=== PATIENT | male | born 1950 | race Caucasian/White ===

== ENCOUNTER 2018-07-10 11:59 | Inpatient (IN) ==
[2018-07-10] MEDS ORDERED: traMADol 50 MG TABLET PO PRN ×2 (16:45→18:45)
[2018-07-10] MEDS: Ipratropium/Albuterol Neb 3 ML IH SCH ×2 (18:05→23:11)
[2018-07-10] MEDS: traMADol 50 MG TABLET PO PRN (19:46)
[2018-07-10] MEDS: Apixaban 5 MG TABLET PO SCH (19:46)
[2018-07-10] MEDS: Gabapentin 300 MG CAPSULE PO SCH (19:46)
[2018-07-10] MEDS: Divalproex (24 HR) 500 MG TABLET PO SCH (19:46)
[2018-07-10] MEDS: Potassium Chloride Elixir 20 MEQ/15 ML UDC PO SCH (19:47)
[2018-07-10] MEDS ORDERED: NON-FORMULARY MEDICATION 1 EACH EACH (Calcium Carbonate/Vitamin D3 [Calcium 500+D Tablet C PO SCH (21:00)
[2018-07-11] MEDS: traMADol 50 MG TABLET PO PRN ×4 (03:49→23:05)
[2018-07-11] MEDS: Ipratropium/Albuterol Neb 3 ML IH SCH ×3 (04:45→16:00)
[2018-07-11] MEDS: Apixaban 5 MG TABLET PO SCH ×2 (04:58→16:59)
[2018-07-11] MEDS ORDERED: Tiotropium 18 MCG inhalation IH SCH (09:00)
[2018-07-11] MEDS ORDERED: amLODIPine 5 MG TABLET PO SCH (09:00)
[2018-07-11] MEDS ORDERED: Furosemide 40 MG TABLET PO SCH (09:00)
[2018-07-11] MEDS: levoFLOXacin 250 MG TABLET PO SCH (09:01)
[2018-07-11] MEDS: Budesonide/Formoterol 160/4.5 1 PUFF INH IH SCH (09:01)
[2018-07-11] MEDS: predniSONE 20 MG TABLET PO SCH (09:02)
[2018-07-11] MEDS: Gabapentin 300 MG CAPSULE PO SCH ×2 (09:02→15:22)
[2018-07-11] MEDS: Potassium Chloride Elixir 20 MEQ/15 ML UDC PO SCH ×2 (09:03→21:42)
[2018-07-11] MEDS: Cholecalciferol (D-3) 1,000 UNIT TABLET PO SCH (09:03)
[2018-07-11] MEDS: Finasteride 5 MG TABLET PO SCH (09:04)
--- NOTE | 2018-07-11 16:37 | Internal Med History&Physical ---
Date of Encounter: 07/11/18 Time of Encounter: 16:00 Assessment and Plan (1) Hospital-acquired pneumonia Current visit: No Status: Acute Continue Levaquin through July 20. Add lactobacillus. (2) Anemia Current visit: Yes Status: Acute Present on all labs since July 2017. Anemia testing will be done in a.m. Qualifiers: Anemia type: unspecified type Qualified Code(s): D64.9 - Anemia, unspecified (3) DM type 2 (diabetes mellitus, type 2) Current visit: Yes Status: Chronic He was unaware of this. Hemoglobin A1c was 7.1% on 06/27/2018. Monitor blood sugars as needed. Qualifiers: Diabetes mellitus terminal worker insulin use: without terminal worker use Diabetes mellitus complication status: without complication Qualified Code(s): E11.9 - Type 2 diabetes mellitus without complications (4) Weight gain Current visit: Yes Status: Acute TSH will be checked in a.m. Suspect weight gain due in part to fluid retention. Bumex will be started instead of Lasix and further workup done as needed. (5) DVT (deep venous thrombosis) Current visit: No Status: Chronic Continue Eliquis Qualifiers: DVT location: lower extremity Affected thrombotic vein of extremity: unspecified lower extremity proximal vein Chronicity: acute Laterality: right Qualified Code(s): I82.4Y1 - Acute embolism and thrombosis of unspecified deep veins of right proximal lower extremity (6) Hypertension Current visit: No Status: Chronic Discontinue amlodipine to lessen edema. Coreg will be started. Qualifiers: Hypertension type: essential hypertension Qualified Code(s): I10 - Essential (primary) hypertension Internal Medicine - H&P: HPI Chief complaint: Pneumonia Admitted From: Hospital to Hospital Transfer Plans for Post Hospital Care: Home History of present illness: Mr. Stanton is a 68 year old male who was transferred to [facility] swing bed after a 07/03/2018-07/08/2018 stay at [facility] for treatment of hospital-acquired pneumonia. He reports it was the sixth hospitalization an approximate 4 months. Bronchoscopy and BAL were performed. AFB stain was negative. Legionella culture was pending at time of discharge. Respiratory culture showed growth of normal perez with yeast species seen on fungal culture. Respiratory history is significant for having smoked from age [age] never exceeding 1 pack per day. PFTs 04/10/2018 showed FVC 53% predicted, FEV1 44% predicted, FEV 1/FVC 62%, and MVV 44% predicted. There was no significant improvement in FVC or FEV1 postbronchodilator. He wears oxygen 07/01. He reports negative RAFAEL workup in 2018. Past Med Surg Social Fam HX - Past Medical History Medical history: arthritis, COPD, GERD, other Additional medical history: pericarditis Psychiatric history: anxiety - Past Surgical History Surgical History: cholecystectomy, knee replacement, orthopedic, other Additional surgical history: heart surgery( pericardial window). total right knee replacement. left hip surgery with noa from hip to knee - Social History Smoking Status: Former smoker Smokeless Tobacco Status: No Alcohol use: none Drug use: none - Family History Mother Living Status: Hx Family Cancer: Yes (breast) Father Living Status: Hx Family Cardiac Disorders: Yes Hx Family Cancer: Yes (colon) Internal Medicine - H&P: Meds Calcium Carbonate/Vitamin D3 [Calcium 500+D Tablet Chew] 1 tab PO BID 01/28/17 [History] Divalproex (24 HR) [Depakote ER (24 HR)] 500 mg PO HS 01/28/17 [History] Finasteride [Proscar] 5 mg PO DAILY 01/28/17 [History] Gabapentin [Neurontin] 600 mg PO TID 01/28/17 [History] Tramadol HCl [Ultram] 50 - 100 mg PO Q6HR PRN 01/28/17 [History] Esomeprazole Magnesium [Nexium] 20 mg PO DAILY 04/22/17 [History] Tizanidine HCl 4 mg PO TID PRN 04/11/18 [History] Albuterol Sulfate [Ventolin Hfa] 2 puff IH Q6H PRN 05/20/18 [History] Budesonide/Formoterol 160/4.5 [Symbicort 160/4.5] 2 puff IH DAILY 05/20/18 [History] Tiotropium [Spiriva] 1 puff IH DAILY 05/20/18 [History] Apixaban [Eliquis] 5 mg PO 0600,1800 06/17/18 [History] Quetiapine Fumarate [Seroquel] 400 mg PO HS 06/17/18 [History] Lisinopril [Zestril] 5 mg PO DAILY #30 tablet 01/14/19 [Rx] Amlodipine Besylate 10 mg PO DAILY 07/03/18 [History] Furosemide [Lasix] 40 mg PO QAM #30 tablet 07/08/18 [Rx] Ipratropium/Albuterol Neb [Duoneb] 3 ml IH QID #100 inhsol 07/08/18 [Rx] Potassium Chloride Elixir [Potassium Chloride] 10 meq PO BID #60 udc 07/08/18 [R x] levoFLOXacin [Levaquin] 750 mg PO DAILY 12 Days #12 tablet 07/08/18 [Rx] predniSONE [PredniSONE] 20 mg PO QAM #5 tablet 07/08/18 [Rx] Allergy/AdvReac Type Severity Reaction Status Date / Time metoprolol [From Toprol XL] Allergy Swelling Verified 07/03/18 09:20 of Lip/Tongue/Throat tamsulosin [From Flomax] Allergy Itching Verified 07/03/18 09:20 All Systems PM: A 10-system review of systems was performed and is negative for pertinent findings except as documented above in the HPI. Review of systems: Gen.: His weight has been stable at approximately 192 kg since March 2018. He reports a weight gain of ~70 pounds from 1 year ago. Cardiovascular: He has history of hypertension. He denies MA or pulmonary embolism. He states he had right leg DVT diagnosed a few weeks ago and is on Eliquis. Echocardiogram 06/27/2017 showed LVEF of 60-65%. The E/A ratio was 0.8. No significant valvular abnormalities were seen. Regadenoson EST 03/29/2017 showed no evidence of ischemia or infarct on EKG or perfusion imaging. He reports pericardial window procedure was performed approximately 2006. Respiratory: As per history of present illness GI: He states he drank significantly in early adulthood he was diagnosed with cirrhosis approximately 2004. He has had cholecystectomy. He denies other disorders of his liver or exocrine pancreas : He denies hematuria dysuria or kidney stones. He has BPH and is on Proscar. Neurologic: He denies large disposition strokes or seizures. Endocrine: He denies diabetes thyroid disease or hyperlipidemia Hematology/oncology: He was unaware he had anemia. He denies known internal malignancies or other blood disorders Psychiatric: He states he does not feel anxiety or depression. He has not been diagnosed with other mental health issues. [place] skeletal: He has DJD but denies gout or other bone joint or muscle disorders. - Constitutional Vitals: Temp Pulse Resp BP Pulse Ox 98.2 F 101 16 130/83 96 07/11/18 06:54 07/11/18 09:46 07/11/18 16:02 07/11/18 06:54 07/11/18 16:02 Exam: Gen.: He is well-developed overweight male who appears in minimal respiratory distress while at rest HEENT: Head is atraumatic and normocephalic. Eyes: EOMI. There is no scleral icterus. Mouth: Mucosa is moist. Neck: Supple and nontender. There is no thyromegaly or adenopathy noted. Heart: Regular without murmurs gallops or ectopics Lungs: No wheezes or crackles are heard. Abdomen: Has a large abdomen. It is nontender to palpation. No masses or guarding are noted. Extremities: He has 1-2+ edema of the dorsum the feet and lower legs bilaterally. Dorsalis pedis and posterior tibial pulses are not palpable. Neurologic: Mental status: He is talkative and a good historian. Cranial nerves: Smile is symmetric. Forehead wrinkles bilaterally. Tongue protrudes midline. EOMI. Motor: There is no pronator drift. Cerebellar: Finger to nose is intact bilaterally. Skin: Warm and dry
[2018-07-11] MEDS: Bumetanide 1 MG TABLET PO SCH (17:35)
[2018-07-11] MEDS: Isosorbide MONOnitrate (24 HR) 30 MG TAB.ER.24H PO SCH (17:36)
[2018-07-11] MEDS: Divalproex (24 HR) 500 MG TABLET PO SCH (21:41)
[2018-07-11] MEDS: Lactobacillus 1 EACH CAP.SPRINK PO SCH (21:42)
[2018-07-11] MEDS: tiZANidine 4 MG TABLET PO PRN (21:42)
[2018-07-11] MEDS: Gabapentin 400 MG CAPSULE PO SCH (21:42)
[2018-07-12] MEDS: Apixaban 5 MG TABLET PO SCH ×2 (05:25→17:02)
[2018-07-12] MEDS: traMADol 50 MG TABLET PO PRN ×3 (05:25→22:06)
[2018-07-12] MEDS: tiZANidine 4 MG TABLET PO PRN ×2 (05:25→22:06)
[2018-07-12 06:41] LABS: Basophils % 0.6 %; Eosinophils # 0.1 K/mcL (0.0-0.6); Eosinophils % 2.5 %; Hematocrit 31.5 % (37.5-50.1); Hemoglobin 10.4 g/dL (12.9-16.9); Lymphocytes % 18.8 %; Mean Corpuscular Hemoglobin 30.3 pg (28.0-33.3); Mean Corpuscular Volume 91.8 fL (83.0-100.0); Mean Platelet Volume 9.9 fL (9.4-12.4); Monocytes # 0.2 K/mcL (0.0-1.3); Monocytes % 4.5 %; Neutrophils # 3.5 K/mcL (1.6-8.9); Platelet Count 129 K/mcL (140-400); Red Blood Count 3.43 M/mcL (4.19-5.50); Red Cell Distribution Width 15.1 % (11.5-14.5); Segmented Neutrophils % 67.6 %
[2018-07-12 07:04] LABS: BUN/Creatinine Ratio 15 (6-26); Blood Urea Nitrogen 12 mg/dL (8-23); Calcium 8.9 mg/dL (8.6-10.3); Carbon Dioxide 29 mEq/L (23-29); Chloride 95 mEq/L (98-107); Glucose 131 mg/dL (70-105); Osmolality,Calculated 274 (280-300); Sodium 131 mEq/L (136-145); eGFR For Non-African Americans > 60 (> 60)
[2018-07-12 07:16] LABS: Thyroid Stimulating Hormone 2.505 mcIU/mL (0.340-5.600)
[2018-07-12 07:28] LABS: Hypochromasia Present (Not Present); Platelet Estimate Decreased (Normal)
[2018-07-12] MEDS: levoFLOXacin 250 MG TABLET PO SCH (08:45)
[2018-07-12] MEDS: Potassium Chloride Elixir 20 MEQ/15 ML UDC PO SCH ×2 (08:45→21:34)
[2018-07-12] MEDS: Bumetanide 1 MG TABLET PO SCH (08:46)
[2018-07-12] MEDS: Cholecalciferol (D-3) 1,000 UNIT TABLET PO SCH (08:46)
[2018-07-12] MEDS: Lactobacillus 1 EACH CAP.SPRINK PO SCH ×2 (08:46→21:33)
[2018-07-12] MEDS: predniSONE 20 MG TABLET PO SCH (08:46)
[2018-07-12] MEDS: Gabapentin 400 MG CAPSULE PO SCH ×3 (08:46→21:34)
[2018-07-12] MEDS: Isosorbide MONOnitrate (24 HR) 30 MG TAB.ER.24H PO SCH (08:46)
[2018-07-12] MEDS: Finasteride 5 MG TABLET PO SCH (08:47)
[2018-07-12 10:08] LABS: % Iron Saturation 20 % (20-55); Iron 72 mcg/dL (65-175); Transferrin 251 mg/dL (203-362)
[2018-07-12 10:26] LABS: Ferritin 74 ng/mL (20-250)
[2018-07-12 10:31] LABS: Folate 6.3 ng/mL (3.0-16.0)
[2018-07-12] MEDS: Tiotropium 18 MCG inhalation IH SCH (10:43)
[2018-07-12] MEDS: Budesonide/Formoterol 160/4.5 1 PUFF INH IH SCH (10:44)
--- NOTE | 2018-07-12 16:41 | Internal Med Progress Note ---
Date of Encounter: 07/12/18 Time of Encounter: 16:30 - Assessment and plan (1) Hospital-acquired pneumonia Current Visit: No Status: Acute Assessment and plan: July 12. Continue Levaquin and lactobacillus through July 20. (2) Anemia Current Visit: Yes Status: Acute Assessment and plan: July 12. Anemia testing showed iron 72, transferrin saturation 20%, transferrin 251, ferritin 74, B12 213, and folate 6.3. He will be given a B12 injection and start oral B12 supplement. Qualifiers: Anemia type: unspecified type Qualified Code(s): D64.9 - Anemia, unspecified (3) DM type 2 (diabetes mellitus, type 2) Current Visit: Yes Status: Chronic Assessment and plan: July 12. Hemoglobin A1c was 7.1% on 06/27/2018. Continue Accu-Cheks with SSI and diabetic diet Qualifiers: Diabetes mellitus dedicated intermodal truck driver insulin use: without senior living use Diabetes mellitus complication status: without complication Qualified Code(s): E11.9 - Type 2 diabetes mellitus without complications (4) Weight gain Current Visit: Yes Status: Acute Assessment and plan: July 11. TSH was normal at 2.505. Continue diuretic treatment. (5) DVT (deep venous thrombosis) Current Visit: No Status: Chronic Assessment and plan: July 12. Continue Eliquis. Qualifiers: DVT location: lower extremity Affected thrombotic vein of extremity: unspecified lower extremity proximal vein Chronicity: acute Laterality: right Qualified Code(s): I82.4Y1 - Acute embolism and thrombosis of unspe cified deep veins of right proximal lower extremity (6) Hypertension Current Visit: No Status: Chronic Assessment and plan: July 12. Continue Coreg and remain off amlodipine. Qualifiers: Hypertension type: essential hypertension Qualified Code(s): I10 - Essential (primary) hypertension (7) Hypophosphatemia Current Visit: Yes Status: Acute Assessment and plan: July 12. Phosphorus level was 2.1 on 07/03/2018. Recheck. - Subjective Interval history: July 12. He has no new complaints. - Constitutional Vitals: Temp Pulse Resp BP Pulse Ox 97.4 F L 84 18 112/68 94 07/12/18 08:05 07/12/18 13:40 07/12/18 10:45 07/12/18 13:40 07/12/18 10:45 Exam: He is resting comfortably in bed and appears in no acute distress. His edema shows slight decrease in his lower legs. I reviewed his medications and lab results. Internal Medicine: Result - Labs CBC & Chem 7: 07/12/18 06:00 07/12/18 06:00 Labs: Short CBC 07/12/18 Range/Units 06:00 WBC 5.2 (4.3-11.1) K/mcL Hgb 10.4 L (12.9-16.9) g/dL Hct 31.5 L (37.5-50.1) % Plt Count 129 L (140-400) K/mcL Neutrophils # 3.5 (1.6-8.9) K/mcL BMP 07/12/18 06:00 Sodium 131 L Potassium 4.0 Chloride 95 L Carbon Dioxide 29 BUN 12 Creatinine 0.78 Glucose 131 H Calcium 8.9 Consult Discharge Plan - Plan Referrals: NONE,PCP [Primary Care Provider] - 1 week
[2018-07-12] MEDS ORDERED: Cyanocobalamin (B-12) 1,000 MCG/ML VIAL IM ONE (16:44)
[2018-07-12] MEDS: Divalproex (24 HR) 500 MG TABLET PO SCH (21:33)
[2018-07-13] MEDS: Apixaban 5 MG TABLET PO SCH ×2 (06:46→16:58)
[2018-07-13] MEDS: Isosorbide MONOnitrate (24 HR) 30 MG TAB.ER.24H PO SCH (09:29)
[2018-07-13] MEDS: Finasteride 5 MG TABLET PO SCH (09:29)
[2018-07-13] MEDS: levoFLOXacin 250 MG TABLET PO SCH (09:29)
[2018-07-13] MEDS: Cyanocobalamin (B-12) 1,000 MCG TABLET PO SCH (09:30)
[2018-07-13] MEDS: Lactobacillus 1 EACH CAP.SPRINK PO SCH ×2 (09:31→20:45)
[2018-07-13] MEDS: Bumetanide 1 MG TABLET PO SCH (09:31)
[2018-07-13] MEDS: Cholecalciferol (D-3) 1,000 UNIT TABLET PO SCH (09:31)
[2018-07-13] MEDS: Potassium Chloride Elixir 20 MEQ/15 ML UDC PO SCH ×2 (09:32→20:47)
[2018-07-13] MEDS: Gabapentin 400 MG CAPSULE PO SCH ×3 (09:32→20:45)
--- NOTE | 2018-07-13 10:35 | Internal Med Progress Note ---
Date of Encounter: 07/13/18 Time of Encounter: 10:25 - Assessment and plan (1) Hospital-acquired pneumonia Current Visit: No Status: Acute Assessment and plan: July 12. Continue Levaquin and lactobacillus through July 20. (2) Anemia Current Visit: Yes Status: Acute Assessment and plan: July 12. Anemia testing showed iron 72, transferrin saturation 20%, transferrin 251, ferritin 74, B12 213, and folate 6.3. He will be given a B12 injection and start oral B12 supplement. Qualifiers: Anemia type: unspecified type Qualified Code(s): D64.9 - Anemia, unspecified (3) DM type 2 (diabetes mellitus, type 2) Current Visit: Yes Status: Chronic Assessment and plan: July 12. Hemoglobin A1c was 7.1% on 06/27/2018. Continue Accu-Cheks with SSI and diabetic diet Qualifiers: Diabetes mellitus marine oil terminal superintendent insulin use: without longterm use Diabetes mellitus complication status: without complication Qualified Code(s): E11.9 - Type 2 diabetes mellitus without complications (4) Weight gain Current Visit: Yes Status: Acute Assessment and plan: July 11. TSH was normal at 2.505. Continue diuretic treatment. (5) DVT (deep venous thrombosis) Current Visit: No Status: Chronic Assessment and plan: July 12. Continue Eliquis. Qualifiers: DVT location: lower extremity Affected thrombotic vein of extremity: unspecified lower extremity proximal vein Chronicity: acute Laterality: right Qualified Code(s): I82.4Y1 - Acute embolism and thrombosis of unspe cified deep veins of right proximal lower extremity (6) Hypertension Current Visit: No Status: Chronic Assessment and plan: July 12. Continue Coreg and remain off amlodipine. Qualifiers: Hypertension type: essential hypertension Qualified Code(s): I10 - Essential (primary) hypertension (7) Hypophosphatemia Current Visit: Yes Status: Acute Assessment and plan: July 12. Phosphorus level was 2.1 on 07/03/2018. Recheck. July 13. Phosphorus level normal at 3.1. - Subjective Interval history: July 12. He has no new complaints. July 13. He has no new complaints and feels better. - Constitutional Vitals: Temp Pulse Resp BP Pulse Ox 98.0 F 82 18 110/64 98 07/13/18 08:08 07/13/18 08:08 07/13/18 08:08 07/13/18 08:08 07/13/18 08:08 Exam: He is resting comfortably in bed and appears in no acute distress. His extremity edema has lessened slightly. I reviewed his medications and lab results. Internal Medicine: Result - Labs CBC & Chem 7: 07/12/18 06:00 07/12/18 06:00 Consult Discharge Plan - Plan Referrals: NONE,PCP [Primary Care Provider] - 1 week
[2018-07-13] MEDS: tiZANidine 4 MG TABLET PO PRN ×2 (10:46→20:44)
[2018-07-13] MEDS: traMADol 50 MG TABLET PO PRN ×2 (10:46→20:45)
[2018-07-13] MEDS: Tiotropium 18 MCG inhalation IH SCH (11:09)
[2018-07-13] MEDS: Budesonide/Formoterol 160/4.5 1 PUFF INH IH SCH (11:09)
[2018-07-13] MEDS: Divalproex (24 HR) 500 MG TABLET PO SCH (20:49)
[2018-07-13] MEDS: Insulin LISPRO 300 UNITS/3 ML VIAL SQ SCH (20:52)
[2018-07-14] MEDS: traMADol 50 MG TABLET PO PRN ×2 (06:09→14:58)
[2018-07-14] MEDS: Apixaban 5 MG TABLET PO SCH ×2 (06:09→17:06)
[2018-07-14] MEDS ORDERED: Ondansetron ODT 4 MG TAB.RAPDIS SL PRN (07:45)
[2018-07-14] MEDS: Potassium Chloride Elixir 20 MEQ/15 ML UDC PO SCH ×2 (07:49→21:00)
[2018-07-14] MEDS: Lactobacillus 1 EACH CAP.SPRINK PO SCH ×2 (07:50→21:00)
[2018-07-14] MEDS: Cyanocobalamin (B-12) 1,000 MCG TABLET PO SCH (07:50)
[2018-07-14] MEDS: Cholecalciferol (D-3) 1,000 UNIT TABLET PO SCH (07:50)
[2018-07-14] MEDS: Isosorbide MONOnitrate (24 HR) 30 MG TAB.ER.24H PO SCH (07:50)
[2018-07-14] MEDS: Gabapentin 400 MG CAPSULE PO SCH ×3 (07:50→21:00)
[2018-07-14] MEDS: Bumetanide 1 MG TABLET PO SCH (07:50)
[2018-07-14] MEDS: levoFLOXacin 250 MG TABLET PO SCH (07:51)
[2018-07-14] MEDS: Finasteride 5 MG TABLET PO SCH (07:51)
[2018-07-14] MEDS: Insulin LISPRO 300 UNITS/3 ML VIAL SQ SCH ×4 (08:01→21:05)
[2018-07-14] MEDS: Tiotropium 18 MCG inhalation IH SCH (09:52)
[2018-07-14] MEDS: Budesonide/Formoterol 160/4.5 1 PUFF INH IH SCH (09:52)
[2018-07-14] MEDS: tiZANidine 4 MG TABLET PO PRN (14:58)
[2018-07-14] MEDS: Divalproex (24 HR) 500 MG TABLET PO SCH (21:05)
[2018-07-15] MEDS: traMADol 50 MG TABLET PO PRN ×3 (05:12→22:16)
[2018-07-15] MEDS: Apixaban 5 MG TABLET PO SCH ×2 (05:12→17:31)
[2018-07-15] MEDS: tiZANidine 4 MG TABLET PO PRN ×3 (05:12→22:22)
[2018-07-15] MEDS: Insulin LISPRO 300 UNITS/3 ML VIAL SQ SCH ×4 (08:13→22:16)
[2018-07-15] MEDS: Potassium Chloride Elixir 20 MEQ/15 ML UDC PO SCH ×2 (08:13→22:16)
[2018-07-15] MEDS: Bumetanide 1 MG TABLET PO SCH (08:17)
[2018-07-15] MEDS: levoFLOXacin 250 MG TABLET PO SCH (08:19)
[2018-07-15] MEDS: Cyanocobalamin (B-12) 1,000 MCG TABLET PO SCH (08:20)
[2018-07-15] MEDS: Gabapentin 400 MG CAPSULE PO SCH ×3 (08:20→22:16)
[2018-07-15] MEDS: Isosorbide MONOnitrate (24 HR) 30 MG TAB.ER.24H PO SCH (08:21)
[2018-07-15] MEDS: Cholecalciferol (D-3) 1,000 UNIT TABLET PO SCH (08:21)
[2018-07-15] MEDS: Lactobacillus 1 EACH CAP.SPRINK PO SCH ×2 (08:21→22:15)
[2018-07-15] MEDS: Finasteride 5 MG TABLET PO SCH (08:29)
[2018-07-15] MEDS: Budesonide/Formoterol 160/4.5 1 PUFF INH IH SCH (09:09)
[2018-07-15] MEDS: Tiotropium 18 MCG inhalation IH SCH (09:10)
--- NOTE | 2018-07-15 17:55 | Internal Med Progress Note ---
Date of Encounter: 07/15/18 Time of Encounter: 17:45 - Assessment and plan (1) Hospital-acquired pneumonia Current Visit: No Status: Acute Assessment and plan: July 12. Continue Levaquin and lactobacillus through July 20. (2) Anemia Current Visit: Yes Status: Acute Assessment and plan: July 12. Anemia testing showed iron 72, transferrin saturation 20%, transferrin 251, ferritin 74, B12 213, and folate 6.3. He will be given a B12 injection and start oral B12 supplement. Qualifiers: Anemia type: unspecified type Qualified Code(s): D64.9 - Anemia, unspecified (3) DM type 2 (diabetes mellitus, type 2) Current Visit: Yes Status: Chronic Assessment and plan: July 12. Hemoglobin A1c was 7.1% on 06/27/2018. Continue Accu-Cheks with SSI and diabetic diet July 15. Blood sugars are satisfactory. Continue present regimen Qualifiers: Diabetes mellitus lobsterman insulin use: without lobsterman use Diabetes mellitus complication status: without complication Qualified Code(s): E11.9 - Type 2 diabetes mellitus without complications (4) Weight gain Current Visit: Yes Status: Acute Assessment and plan: July 11. TSH was normal at 2.505. Continue diuretic treatment. (5) DVT (deep venous thrombosis) Current Visit: No Status: Chronic Assessment and plan: July 12. Continue Eliquis. Qualifiers: DVT location: lower extremity Affected thrombotic vein of extremity: unspecified lower extremity proximal vein Chronicity: acute Laterality: right Qualified Code(s): I82.4Y1 - Acute embolism and thrombosis of unspecified deep veins of right proximal lower extremity (6) Hypertension Current Visit: No Status: Chronic Assessment and plan: July 12. Continue Coreg and remain off amlodipine. July 15. Continue Coreg and lisinopril. Qualifiers: Hypertension type: essential hypertension Qualified Code(s): I10 - Essential (primary) hypertension (7) Hypophosphatemia Current Visit: Yes Status: Acute Assessment and plan: July 12. Phosphorus level was 2.1 on 07/03/2018. Recheck. July 13. Phosphorus level normal at 3.1. - Subjective Interval history: July 12. He has no new complaints. July 13. He has no new complaints and feels better. July 15. He has no new complaints. - Constitutional Vitals: Temp Pulse Resp BP Pulse Ox 98.2 F 71 20 103/67 95 07/15/18 11:00 07/15/18 11:00 07/15/18 11:00 07/15/18 11:00 07/15/18 11:00 Exam: He is resting comfortably in bed and appears in no acute distress. He has trace edema of his lower legs bilaterally. His affect is bright and cheerful. I reviewed his medications and lab results. Internal Medicine: Result - Labs CBC & Chem 7: 07/12/18 06:00 07/12/18 06:00 Consult Discharge Plan - Plan Referrals: NONE,PCP [Primary Care Provider] - 1 week
[2018-07-15] MEDS: Divalproex (24 HR) 500 MG TABLET PO SCH (22:15)
[2018-07-16] MEDS: Apixaban 5 MG TABLET PO SCH (05:58)
[2018-07-16] MEDS: traMADol 50 MG TABLET PO PRN ×2 (05:58→11:43)
[2018-07-16] MEDS: tiZANidine 4 MG TABLET PO PRN (06:01)
[2018-07-16 06:53] VITALS: BP 132/71
[2018-07-16] MEDS: Insulin LISPRO 300 UNITS/3 ML VIAL SQ SCH (08:19)
[2018-07-16] MEDS: Bumetanide 1 MG TABLET PO SCH (08:20)
[2018-07-16] MEDS: Isosorbide MONOnitrate (24 HR) 30 MG TAB.ER.24H PO SCH (08:21)
[2018-07-16] MEDS: levoFLOXacin 250 MG TABLET PO SCH (08:21)
[2018-07-16] MEDS: Gabapentin 400 MG CAPSULE PO SCH (08:22)
[2018-07-16] MEDS: Finasteride 5 MG TABLET PO SCH (08:22)
[2018-07-16] MEDS: Lactobacillus 1 EACH CAP.SPRINK PO SCH (08:23)
[2018-07-16] MEDS: Cholecalciferol (D-3) 1,000 UNIT TABLET PO SCH (08:24)
[2018-07-16] MEDS: Cyanocobalamin (B-12) 1,000 MCG TABLET PO SCH (08:24)
[2018-07-16] MEDS: Potassium Chloride Elixir 20 MEQ/15 ML UDC PO SCH (08:24)
[2018-07-16] MEDS: Tiotropium 18 MCG inhalation IH SCH (09:18)
[2018-07-16] MEDS: Budesonide/Formoterol 160/4.5 1 PUFF INH IH SCH (09:18)
--- NOTE | 2018-07-16 11:10 | Discharge Summary ---
Date of Encounter: 07/16/18 Time of Encounter: 10:50 - Discharge Diagnosis (1) Hospital-acquired pneumonia Priority: Primary Status: Acute (2) Anemia Priority: Secondary Status: Acute Qualifiers: Anemia type: B12 deficiency Vitamin B12 deficiency anemia type: unspecified B12 deficiency Qualified Code(s): D51.9 - Vitamin B12 deficiency anemia, unspecified (3) DM type 2 (diabetes mellitus, type 2) Priority: Secondary Status: Chronic Qualifiers: Diabetes mellitus termination clerk insulin use: without senior care use Diabetes mellitus complication status: without complication Qualified Code(s): E11.9 - Type 2 diabetes mellitus without complications (4) Weight gain Priority: Secondary Status: Acute (5) DVT (deep venous thrombosis) Priority: Secondary Status: Chronic Qualifiers: DVT location: lower extremity Affected thrombotic vein of extremity: unspecified lower extremity proximal vein Chronicity: acute Laterality: right Qualified Code(s): I82.4Y1 - Acute embolism and thrombosis of unspecified deep veins of right proximal lower extremity (6) Hypertension Priority: Secondary Status: Chronic Qualifiers: Hypertension type: essential hypertension Qualified Code(s): I10 - Essential (primary) hypertension Hospital course: Mr. Stanton is a 68 year old male who was transferred to [facility] swing bed after a 07/03/2018-07/08/2018 stay at [facility] for treatment of hospital-acquired pneumonia. He reports it was the sixth hospitalization an approximate 4 months. Bronchoscopy and BAL were performed. AFB stain was negative. Legionella culture was pending at time of discharge. Respiratory culture showed growth of normal perez with yeast species seen on fungal culture. Initial orders were written by the discharging physicians at [facility]. I saw him on July 11 and performed a swing bed history and physical. He continued oral Levaquin with lactobacillus. He remained afebrile.. He will continue Levaquin and lactobacillus through 07/20/2018. TSH returned normal at 2.505. Eliquis was continued for DVT therapy. He was changed from Lasix to Bumex at a dose of 1.5 mg twice a day. He had significant diuresis with decreased edema. Norvasc was discontinued to lessen edema. Coreg was started and blood pressure remained satisfactory. No adverse reaction to Coreg occurred although metoprolol allergy was reported. Imdur was also started. His dyspnea slightly improved and ambulation ability increased. Anemia testing showed iron 72, transferrin saturation 20%, transferrin 251, ferritin 74, B12 213, and folate 6.3. He was given a B12 injection and started on oral B12 supplementation which will be continued at discharge. On July 16 he stated he wished to be discharged home. He was offered add itional days in therapy but declined. He will follow with an Maggie PCP in [place] within 1 week. - Time Spent with Patient Total time spent providing and/or coordinating discharge services: - Discharge Medications Prescriptions: Bumetanide [Bumex] 1.5 mg PO DAILY #45 tablet Carvedilol [Coreg] 6.25 mg PO BIDWM #60 tablet Cyanocobalamin (B-12) [Vitamin B12] 1,000 mcg PO DAILY #30 tablet Isosorbide MONOnitrate (24 HR) [Imdur] 30 mg PO DAILY #30 tab.er.24h Lactobacillus [Culturelle] 1 each PO BID #6 cap.sprink levoFLOXacin [Levaquin] 750 mg PO DAILY 12 Days #3 tablet Home Medications: Calcium Carbonate/Vitamin D3 [Calcium 500+D Tablet Chew] 1 tab PO BID 01/28/17 [History] Divalproex (24 HR) [Depakote ER (24 HR)] 500 mg PO HS 01/28/17 [History] Finasteride [Proscar] 5 mg PO DAILY 01/28/17 [History] Tramadol HCl [Ultram] 100 mg PO Q6HR PRN 01/28/17 [History] Esomeprazole Magnesium [Nexium] 20 mg PO DAILY 04/22/17 [History] Tizanidine HCl 4 mg PO TID PRN 04/11/18 [History] Albuterol Sulfate [Ventolin Hfa] 2 puff IH Q6H PRN 05/20/18 [History] Budesonide/Formoterol 160/4.5 [Symbicort 160/4.5] 2 puff IH DAILY 05/20/18 [History] Tiotropium [Spiriva] 1 puff IH DAILY 05/20/18 [History] Apixaban [Eliquis] 5 mg PO 0600,1800 06/17/18 [History] Quetiapine Fumarate [Seroquel] 400 mg PO HS 06/17/18 [History] Lisinopril [Zestril] 5 mg PO DAILY #30 tablet 06/30/18 [Rx] Potassium Chloride Elixir [Potassium Chloride] 10 meq PO BID #60 udc 07/08/18 [Rx] Bumetanide [Bumex] 1.5 mg PO DAILY #45 tablet 07/16/18 [Rx] Carvedilol [Coreg] 6.25 mg PO BIDWM #60 tablet 07/16/18 [Rx] Cyanocobalamin (B-12) [Vitamin B12] 1,000 mcg PO DAILY #30 tablet 07/16/18 [Rx] Gabapentin [Neurontin] 300 mg PO TID #0 07/16/18 [Rx] Isosorbide MONOnitrate (24 HR) [Imdur] 30 mg PO DAILY #30 tab.er.24h 07/16/18 [Rx] Lactobacillus [Culturelle] 1 each PO BID #6 cap.sprink 07/16/18 [Rx] levoFLOXacin [Levaquin] 750 mg PO DAILY 12 Days #3 tablet 07/16/18 [Rx] Allergies/Adverse Reactions: Allergy/AdvReac Type Severity Reaction Status Date / Time metoprolol [From Toprol XL] Allergy Swelling Verified 07/03/18 09:20 of Lip/Tongue/Throat tamsulosin [From Flomax] Allergy Itching Verified 07/03/18 09:20 Date of admission: 07/10/18 16:06 Primary care physician: PCP NONE Consults: 07/10/18 16:42 Consult to Occupational Therapy [CONS] Routine Comment: Evaluate, develop and implement POC Reason for Consult: Evaluate, develop and implement POC Does patient have active BEDREST order?: No Is patient medically & hemodynamically stable?: Yes Patient assessed for mobility or mobilized this visit?: Yes Consult to Physical Therapy [CONS] Routine Comment: Evaluate, develop and implement POC Reason for Consult: Evaluate, develop and implement POC Does patient have active BEDREST order?: No Is patient medically & hemodynamically stable?: Yes Patient assessed for mobility or mobilized this visit?: Yes - Constitutional Vitals: Temp Pulse Resp BP Pulse Ox 97.6 F 96 16 132/71 97 07/16/18 06:00 07/16/18 06:00 07/16/18 09:22 07/16/18 06:00 07/16/18 09:22 - Patient Status Disposition: Home Health Service - Discharge Instructions Follow Up With: NONE,PCP [Primary Care Provider] - 1 week - Diet and Activity Activity: as per physical therapy, wear oxygen at all times Diet: diabetic diet (Home health to provide diabetic diet instruction.)
--- NOTE | 2018-07-16 11:23 | Physician Discharge Referral ---
Home Health/Hosp Referral Info Transfer to: Home Health Attending Provider: [facility] Provider in Charge Post Discharge: PCP - Diagnosis (1) Hospital-acquired pneumonia Priority: Primary Status: Acute (2) Anemia Priority: Secondary Status: Acute (3) DM type 2 (diabetes mellitus, type 2) Priority: Secondary Status: Chronic (4) Weight gain Priority: Secondary Status: Acute (5) DVT (deep venous thrombosis) Priority: Secondary Status: Chronic (6) Hypertension Priority: Secondary Status: Chronic - Respiratory Orders Oxygen / L per min (2 L/m by nasal cannula 07/01 at home) Smoking Cessation: Smoking cessation has been advised. For more information, call the [place] Tobacco Quit Line at 5-849-MQKU-NOW. - Diet/Nutrition Diet/Nutrition Orders: No Concentrated Sweets (Home health personnel to provide diabetic teaching) - Activity Activity Orders: Ambulate - Services Needed Following services are medically necessary services: Nursing, Home Health Aide, Physical Therapy, Occupational Therapy - Transfer Medications Prescriptions: Bumetanide [Bumex] 1.5 mg PO DAILY #45 tablet Carvedilol [Coreg] 6.25 mg PO BIDWM #60 tablet Cyanocobalamin (B-12) [Vitamin B12] 1,000 mcg PO DAILY #30 tablet Isosorbide MONOnitrate (24 HR) [Imdur] 30 mg PO DAILY #30 tab.er.24h Lactobacillus [Culturelle] 1 each PO BID #6 cap.sprink levoFLOXacin [Levaquin] 750 mg PO DAILY 12 Days #3 tablet Home Medications: Calcium Carbonate/Vitamin D3 [Calcium 500+D Tablet Chew] 1 tab PO BID 01/28/17 [History] Divalproex (24 HR) [Depakote ER (24 HR)] 500 mg PO HS 01/28/17 [History] Finasteride [Proscar] 5 mg PO DAILY 01/28/17 [History] Tramadol HCl [Ultram] 100 mg PO Q6HR PRN 01/28/17 [History] Esomeprazole Magnesium [Nexium] 20 mg PO DAILY 04/22/17 [History] Tizanidine HCl 4 mg PO TID PRN 04/11/18 [History] Albuterol Sulfate [Ventolin Hfa] 2 puff IH Q6H PRN 05/20/18 [History] Budesonide/Formoterol 160/4.5 [Symbicort 160/4.5] 2 puff IH DAILY 05/20/18 [History] Tiotropium [Spiriva] 1 puff IH DAILY 05/20/18 [History] Apixaban [Eliquis] 5 mg PO 0600,1800 06/17/18 [History] Quetiapine Fumarate [Seroquel] 400 mg PO HS 06/17/18 [History] Lisinopril [Zestril] 5 mg PO DAILY #30 tablet 06/30/18 [Rx] Potassium Chloride Elixir [Potassium Chloride] 10 meq PO BID #60 udc 07/08/18 [Rx] Bumetanide [Bumex] 1.5 mg PO DAILY #45 tablet 07/16/18 [Rx] Carvedilol [Coreg] 6.25 mg PO BIDWM #60 tablet 07/16/18 [Rx] Cyanocobalamin (B-12) [Vitamin B12] 1,000 mcg PO DAILY #30 tablet 07/16/18 [Rx] Gabapentin [Neurontin] 300 mg PO TID #0 07/16/18 [Rx] Isosorbide MONOnitrate (24 HR) [Imdur] 30 mg PO DAILY #30 tab.er.24h 07/16/18 [Rx] Lactobacillus [Culturelle] 1 each PO BID #6 cap.sprink 07/16/18 [Rx] levoFLOXacin [Levaquin] 750 mg PO DAILY 12 Days #3 tablet 07/16/18 [Rx] Allergies/Adverse Reactions: Allergy/AdvReac Type Severity Reaction Status Date / Time metoprolol [From Toprol XL] Allergy Swelling Verified 07/03/18 09:20 of Lip/Tongue/Throat tamsulosin [From Flomax] Allergy Itching Verified 07/03/18 09:20 Certification: Further, I certify that my clinical findings support that this patient is homebound (i.e. absences from home require considerable and taxing effort and are for medical reasons or anabaptist services or infrequently or short duration when for other reasons) because: Homebound Reason: Leaving home requires considerable and taxing effort due to condition (Dyspnea on exertion.) Attestation: My signature below is to certify that this patient is under my care and that I, or nurse practitioner, or a physician's power plant assistant working with me, has a [id number] encounter with this patient.
== END 2018-07-16 12:26 | disposition home health service (06) | DRG 194 ==
LOC: INPPIK 16:06
PROVIDERS: ADMIT Internal Medicine; ATTEND Internal Medicine